=== PATIENT | male | born 1945 | race Caucasian/White ===

== ENCOUNTER → 2016-05-06 | Outpatient (CLI) | payer MEDICARE, BC | END | disposition short-term general hospital (02) | LOC: CLUROL 13:10 | DX: N40.0 Benign prostatic hyperplasia without lower urinary tract symptoms (principal); R35.1 Nocturia ==

== ENCOUNTER 2016-06-17 13:01 | Day surgery (SDC) | payer MEDICARE, BC | END 2016-06-17 14:00 | disposition short-term general hospital (02) | LOC: SURGOP 13:01 | PROC: 0TJB8ZZ Inspection of Bladder, Via Natural or Artificial Opening Endoscopic (ICD-10-PCS; principal; 2016-06-17) | DX: N40.1 Benign prostatic hyperplasia with lower urinary tract symptoms (principal); R35.1 Nocturia; N32.89 Other specified disorders of bladder ==